=== PATIENT | female | born 1980 | race Caucasian/White ===

== ENCOUNTER 2016-11-25 05:44 | Day surgery (SDC) | payer OTHER ==
[~2016-11-25] VITALS: Ht 162.6 cm; Wt 72.7 kg
[~2016-11-25 05:44] MED LIST: CeFAZolin 2 GM/DEXTROSE 50 ML IV ONE; RINGERS SOLUTION,LACTATED 1,000 ML IV ONE
[2016-11-25] MEDS ORDERED: LIDOCAINE HCL/PF 2% 5 ML SYRINGE IVP ONE (05:45)
[2016-11-25] MEDS ORDERED: ONDANSETRON HCL 4 MG/2 ML VIAL IVP ONE (05:45)
[2016-11-25] MEDS ORDERED: SUCCINYLCHOLINE CHLORIDE 20 MG/ML 10 ML VIAL IVP ONE (05:45)
[2016-11-25] MEDS ORDERED: MIDAZOLAM HCL 2 MG/2 ML VIAL IVP ONE (05:45)
[2016-11-25] MEDS ORDERED: PROPOFOL 1% 20 ML VIAL IVP ONE (05:45)
[2016-11-25] MEDS ORDERED: DEXAMETHASONE SOD PHOS 4 MG/ML VIAL IVP ONE (05:45)
[2016-11-25] MEDS ORDERED: KETOROLAC TROMETHAMINE 60 MG/2 ML VIAL IM ONE (05:45)
[2016-11-25] MEDS ORDERED: FentaNYL CITRATE-PF 100 MCG/2 ML VIAL IVP ONE (05:45)
[2016-11-25] MEDS ORDERED: METOCLOPRAMIDE HCL 5 MG/ML 2 ML VIAL IVP ONE (05:45)
[2016-11-25] MEDS ORDERED: RINGERS SOLUTION,LACTATED 1,000 ML IV ONE ×2 (06:00→09:22)
[2016-11-25 06:25] LABS: BASOPHILS # (AUTO) 0.05 K/uL (0.00-0.20); BASOPHILS % (AUTO) 0.5 % (0.0-2.0); EOSINOPHILS # (AUTO) 0.22 K/uL (0.00-0.70); EOSINOPHILS % (AUTO) 2.25 % (1.0-6.0); HEMOGLOBIN 14.1 g/dL (12.0-16.0); LYMPHOCYTES # (AUTO) 3.6 K/uL (1.0-4.8); LYMPHOCYTES % (AUTO) 36.4 % (22.0-44.0); MEAN CORPUSCULAR HGB CONC 34.4 G/dL (31.0-37.0); MEAN CORPUSCULAR VOLUME 90 fL (80-100); MONOCYTES # (AUTO) 0.4 K/uL (0.1-1.0); MONOCYTES % (AUTO) 4.5 % (2.0-9.0); NEUTROPHILS # (AUTO) 5.6 K/uL (1.8-7.7); NEUTROPHILS % (AUTO) 56.4 % (40.0-70.0); PLATELET COUNT (AUTO) 203 K/uL (150-450); RED BLOOD CELL COUNT(AUTO) 4.54 MIL/uL (4.00-5.20); RED CELL DISTRIBUTION WIDTH 12.8 % (11.5-14.5); WHITE BLOOD COUNT (AUTO) 9.9 K/uL (4.5-11.0)
[2016-11-25] MEDS ORDERED: GUM MASTIC/STORAX/MSAL/ALCOHOL LIQUID 0.67 ML VIAL TP ONE (06:51)
[2016-11-25] MEDS ORDERED: SODIUM CL IRRIG SOLN BAG 9,000 ML IRRIG ONE (06:51)
[2016-11-25] MEDS ORDERED: MUPIROCIN CALCIUM 2% 22 GM OINTMENT ONE (06:51)
[2016-11-25] MEDS ORDERED: BUPIVACAINE 0.25%/EPI 1:200,000/PF 10 ML VIAL ONE (06:51)
[2016-11-25] MEDS ORDERED: BUPIVACAINE HCL/PF 0.5% 30 ML VIAL ONE (06:51)
[2016-11-25] MEDS ORDERED: HYDROmorphone 2 MG/ML SYRINGE IVP PRN (07:00)
[2016-11-25] MEDS ORDERED: FentaNYL CITRATE-PF 100 MCG/2 ML VIAL IVP PRN (07:00)
[2016-11-25] MEDS ORDERED: ACETAMINOPHEN 1000 MG/ISO-OSM 100 ML IV ONE ×2 (07:00→07:04)
[2016-11-25] MEDS ORDERED: BUPIVACAINE LIPOSOME/PF 1.3%-13.3MG/ML SUSPENSION 20 ML VIAL INJ ONE (07:00)
[2016-11-25] MEDS ORDERED: MEPERIDINE-PF 25 MG/ML SYRINGE IVP PRN (07:00)
[2016-11-25] MEDS ORDERED: SCOPOLAMINE HYDROBROMIDE 1.5 MG PATCH TD ONE (07:00)
[2016-11-25] MEDS ORDERED: BUPIVACAINE LIPOSOME/PF 1.3%-13.3MG/ML SUSPENSION 10 ML VIAL INJ ONE (07:15)
[2016-11-25] MEDS ORDERED: SODIUM CHLORIDE 0.9% 20 ML ONE (07:43)
[2016-11-25] MEDS ORDERED: OXYGEN THERAPY IH SCH (08:00)
[2016-11-25] MEDS ORDERED: CeFAZolin 2 GM/DEXTROSE 50 ML IV ONE (08:00)
[2016-11-25] MEDS ORDERED: MEPERIDINE-PF 25 MG/ML SYRINGE ONE (09:18)
[2016-11-25] MEDS ORDERED: ONDANSETRON HCL 4 MG/2 ML VIAL IVP PRN (10:30)
== END 2016-11-25 11:20 | disposition home or self-care (01) ==
LOC: SURGERY 05:44
PROVIDERS: ATTEND Orthopaedic Surgery
DX: M65.861 Other synovitis and tenosynovitis, right lower leg (principal); M23.41 Loose body in knee, right knee; M94.261 Chondromalacia, right knee; M94.8X6 Other specified disorders of cartilage, lower leg; Z90.710 Acquired absence of both cervix and uterus; Z88.8 Allergy status to other drugs, medicaments and biological substances; E66.3 Overweight; Z68.27 Body mass index [BMI] 27.0-27.9, adult; Z86.69 Personal history of other diseases of the nervous system and sense organs
CPT/HCPCS: 29876; 36415; 73560; 85025; 88304; J0131; J0330; J0690; J1100; J1885; J2175; J2250; J2405; J2704; J2765; J3010; J3490 ×2; J7120; C9290